=== PATIENT | male | born 1995 | race Caucasian/White ===

== ENCOUNTER 2017-05-05 11:03 | Emergency (ER) | payer SELFPAY ==
[2017-05-05] MEDS ORDERED: HYDROmorphone* 1 MG/ML 1 ML SYR ONE (11:08)
[2017-05-05] MEDS ORDERED: Ondansetron INJ* 2 MG/ML VIAL ONE (11:08)
[2017-05-05] MEDS ORDERED: Ondansetron INJ* 2 MG/ML VIAL IV ONE (11:08)
[2017-05-05] MEDS ORDERED: HYDROmorphone* 1 MG/ML 1 ML SYR IV SLOW PU ONE (11:08)
[2017-05-05 11:34] LABS: Hematocrit 46 % (42-52); Hemoglobin 16.3 g/dl (14.0-18.0); Mean Corpuscular HGB Conc 36 g/dl (31-36); Mean Corpuscular Hemoglobin 33 pg (27-31); Mean Corpuscular Volume 92 fL (80-94); Mean Platelet Volume 7 um3 (7.4-10.4); Red Blood Count 5.02 10^6/ul (4.0-5.4); Red Cell Distribution Width 13 % (10.5-15); White Blood Count 12.2 10^3/ul (3.5-10.8)
[2017-05-05 11:38] LABS: Comments Flag Yes
[2017-05-05] MEDS ORDERED: HYDROmorphone* 1 MG/ML 1 ML SYR IV ONE (11:39)
[2017-05-05] MEDS ORDERED: NS 0.9% 1000 ML* 1,000 ML IV ONE (11:39)
[2017-05-05 11:49] LABS: Albumin 4.5 g/dL (3.2-5.2); BUN/Creatinine Ratio 16.7 (8-20); Calcium 9.4 mg/dL (8.6-10.3); EGFR African American 112.1 (>60); EGFR Non-African American 87.2 (>60); Globulin 2.7 g/dL (2-4); Potassium 3.9 mmol/L (3.5-5.0); Total Bilirubin 0.9 mg/dL (0.2-1.0); Total Protein 7.2 g/dL (6.4-8.9)
[2017-05-05] MEDS ORDERED: Ketorolac INJ* 30 MG/ML 1 ML VIAL IV PUSH ONE (11:53)
[2017-05-05] MEDS ORDERED: fentaNYL* 50 MCG/ML 2 ML VIAL (100 MCG VIAL) ONE (12:08)
[2017-05-05] MEDS ORDERED: Naloxone* 0.4 MG/ML 1 ML VIAL ONE (12:08)
[2017-05-05] MEDS ORDERED: Midazolam* 1 MG/ML 10 ML VIAL (10 MG) ONE (12:08)
[2017-05-05] MEDS ORDERED: Flumazenil* 0.1 MG/ML 5 ML MDV ONE (12:08)
[2017-05-05] MEDS ORDERED: Iohexol 300* (CONTRAST) 10 ML SDV IV ONE (12:20)
--- NOTE | 2017-05-05 12:27 | RAD ---
HISTORY: Fall onto right shoulder COMPARISONS: None VIEWS: 1, single frontal view of the right shoulder FINDINGS: Limited single frontal projection of the right shoulder is submitted. There is inferior dislocation of the humerus with suspected the glenoid fossa IMPRESSION: LIMITED SINGLE FRONTAL PROJECTION OF THE RIGHT SHOULDER DEMONSTRATES INFERIOR DISLOCATION OF THE HUMERUS WITH RESPECT TO THE GLENOID FOSSA OF THE SCAPULA.
--- NOTE | 2017-05-05 13:07 | ED ---
Adult Trauma - HPI Summary HPI Summary: 22M presents with right shoulder pain s/p fall off ladder. He fell 15 ft onto his right shoulder. He has obvious deformity of right shoulder. He denies any head trauma or LOC. He denies any chest pain, SOB, neck pain, back pain, or abdominal pain. He has history of chronic back pain. He works in construction. He is right handed. He denies any previous dislocation. He denies any numbness or tingling. He ambulated into ED. - History of Current Complaint Chief Complaint: EDExtremityUpper Stated Complaint: SHOLDER INJURY Time Seen by Provider: 05/05/17 11:08 - Allergy/Home Medications Allergies/Adverse Reactions: Allergies Allergy/AdvReac Type Severity Reaction Status Date / Time No Known Allergies Allergy Verified 05/05/17 11:25 PMH/Surg Hx/FS Hx/Imm Hx Endocrine/Hematology History: Denies: Hx Anticoagulant Therapy Cardiovascular History: Denies: Hx Hypertension Infectious Disease History: No Infectious Disease History: Denies: Traveled Outside the [place] in Last 30 Days - Family History Known Family History: Positive: Cardiac Disease - Social History Alcohol Use: Occasionally Substance Use Type: Reports: None Smoking Status (MU): Never Smoked Tobacco Review of Systems Negative: Fever Negative: Chest Pain Negative: Shortness Of Breath Negative: Abdominal Pain Positive: Myalgia - right shoulder deformity All Other Systems Reviewed And Are Negative: Yes Physical Exam Triage Information Reviewed: Yes Vital Signs On Initial Exam: Initial Vitals Temp Pulse Resp BP Pulse Ox 97.8 F 69 20 132/72 98 05/05/17 11:04 05/05/17 11:04 05/05/17 11:04 05/05/17 11:04 05/05/17 11:04 Vital Signs Reviewed: Yes Appearance: Positive: Pain Distress Skin: Positive: Warm, Dry Head/Face: Positive: Normal Head/Face Inspection, Other - no step off, raccoon eyes, sigala sign Eyes: Positive: Normal, EOMI, CHIQUITA, Conjunctiva Clear ENT: Positive: Normal ENT inspection, Pharynx normal, TMs normal Respiratory/Lung Sounds: Positive: Clear to Auscultation, Breath Sounds Present Cardiovascular: Positive: Normal, RRR Abdomen Description: Positive: Nontender, Soft Bowel Sounds: Positive: Present Musculoskeletal: Positive: Strength/ROM Intact - lower extremitites, Other - deformity to right shoulder, good pulses, capillary refill< 2secs, abrasion to right hand, full ROM of hand, wrist. elbow nontender. Procedures - Joint Reduction Joint Reduction Site: shoulder (R) Conscious Sedation: Yes Reduction Attempts: 1 Pre-Procedure NV Exam: Yes Post Joint Reduction Film: joint reduced Diagnostics - Vital Signs Vital Signs Temp Pulse Resp BP Pulse Ox 05/05/17 12:00 73 134/74 98 05/05/17 11:42 18 05/05/17 11:30 54 121/58 99 05/05/17 11:28 59 122/57 96 05/05/17 11:16 63 95 05/05/17 11:15 122/53 05/05/17 11:13 18 05/05/17 11:04 97.8 F 69 20 132/72 98 - Laboratory Lab Results: Lab Results 05/05/17 05/05/17 Range/Units 11:20 11:20 WBC 12.2 H (3.5-10.8) 10^3/ul RBC 5.02 (4.0-5.4) 10^6/ul Hgb 16.3 (14.0-18.0) g/dl Hct 46 (42-52) % MCV 92 (80-94) fL MCH 33 H (27-31) pg MCHC 36 (31-36) g/dl RDW 13 (10.5-15) % Plt Count 178 (150-450) 10^3/ul MPV 7 L (7.4-10.4) um3 Neut % (Auto) 76.7 (38-83) % Lymph % (Auto) 14.8 L (25-47) % [place] % (Auto) 6.5 (1-9) % Eos % (Auto) 1.5 (0-6) % Baso % (Auto) 0.5 (0-2) % Absolute Neuts (auto) 9.4 H (1.5-7.7) 10^3/ul Absolute Lymphs (auto) 1.8 (1.0-4.8) 10^3/ul Absolute Monos (auto) 0.8 (0-0.8) 10^3/ul Absolute Eos (auto) 0.2 (0-0.6) 10^3/ul Absolute Basos (auto) 0.1 (0-0.2) 10^3/ul Absolute Nucleated RBC 0.01 10^3/ul Nucleated RBC % 0.1 Sodium 139 (133-145) mmol/L Potassium 3.9 (3.5-5.0) mmol/L Chloride 104 (101-111) mmol/L Carbon Dioxide 26 (22-32) mmol/L Anion Gap 9 (2-11) mmol/L BUN 18 (6-24) mg/dL Creatinine 1.08 (0.67-1.17) mg/dL Est GFR ( Amer) 112.1 (>60) Est GFR (Non-Af Amer) 87.2 (>60) BUN/Creatinine Ratio 16.7 (8-20) Glucose 146 H (70-100) mg/dL Calcium 9.4 (8.6-10.3) mg/dL Total Bilirubin 0.90 (0.2-1.0) mg/dL AST 21 (13-39) U/L ALT 22 (7-52) U/L Alkaline Phosphatase 57 (34-104) U/L Total Protein 7.2 (6.4-8.9) g/dL Albumin 4.5 (3.2-5.2) g/dL Globulin 2.7 (2-4) g/dL Albumin/Globulin Ratio 1.7 (1-3) Result Diagrams: 05/05/17 11:20 05/05/17 11:20 Lab Statement: Any lab studies that have been ordered have been reviewed, and results considered in the medical decision making process. - Radiology shoulder Xray Interpretation: Positive (See Comments) - IMPRESSION: LIMITED SINGLE FRONTAL PROJECTION OF THE RIGHT SHOULDER DEMONSTRATES INFERIOR DISLOCATION OF THE HUMERUS WITH RESPECT TO THE GLENOID FOSSA OF THE SCAPULA. Radiology Interpretation Completed By: Radiologist reduction shoulder Xray Interpretation: No Acute Changes - IMPRESSION: INTERVAL REDUCTION OF RIGHT SHOULDER DISLOCATION. NO ACUTE OSSEOUS INJURY. IF SYMPTOMS PERSIST, RECOMMEND REPEAT IMAGING. Radiology Interpretation Completed By: Radiologist - CT chest/ab CT Interpretation: Positive (See Comments) - IMPRESSION: 1. MINIMAL AIRSPACE DISEASE OF THE MEDIAL ASPECT OF THE LEFT LOWER LOBE. THIS MAY REPRESENT ATELECTASIS, THOUGH ASPIRATION OR SMALL PULMONARY PARENCHYMAL CONTUSION IS WITHIN THE DIFFERENTIAL IN THE CORRECT CLINICAL SETTING. 2. SPONDYLOLYSIS WITH SPONDYLOLISTHESIS AT L5-S1. 3. DEGENERATIVE DISC DISEASE WITH SEVERAL SCHMORL'S NODES, GREATER THAN EXPECTED FOR AGE, WHICH MAY INDICATE THE SEQUELA OF A JUVENILE OSTEOCHONDROMATOSIS INCLUDING SCHEUERMANN'S DISEASE CT Interpretation Completed By: Radiologist head, neck CT Interpretation: No Acute Changes CT Interpretation Completed By: Radiologist Adult Trauma Course/Dx - Course Course Of Treatment: 22M presents with right shoulder pain s/p fall off ladder. He fell 15 ft onto his right shoulder. He has obvious deformity of right shoulder. He denies any head trauma or LOC. He denies any other pain. He ambulated into ED. on exam no chest tender, abdominal pain, back or neck pain. right shoulder has obvious deformity and xray shows dislocation. with dr espinoza reduced shoulder and reduction xray shows reduced. CT neck, head normal. CT chest shows airspace nontender there so could be pulmonary contusion but vitals stable warned if develops chest pain or SOB to return. told to follow up with ortho and keep in sling. patient understands and agrees with plan - Diagnoses Differential Diagnosis/HQI/PQRI: Positive: Contusion(s), Fracture, Dislocation Provider Diagnoses: Dislocation of right shoulder joint Discharge - Discharge Plan Condition: Good Disposition: HOME Patient Education Materials: Shoulder Dislocation (ED) Forms: *Work Release Referrals: Non Staff,Doctor [Primary Care Provider] - Elder Islas MD [Medical Doctor] - Additional Instructions: Keep sling on area Follow up with ortho Take ibuprofen for pain every 6 hours Return to ED if develop any chest pain, shortness of breathm or any new or worsening symptoms
--- NOTE | 2017-05-05 13:32 | RAD ---
HISTORY: Post reduction, shoulder dislocation COMPARISONS: May 05, 2017 VIEWS: 3, Frontal internal rotation, external rotation, and outlet views of the right shoulder FINDINGS: BONE DENSITY: Normal. BONES: There is no displaced fracture. JOINTS: There is no arthropathy. ALIGNMENT: There is no dislocation. SOFT TISSUES: Unremarkable. OTHER FINDINGS: None. IMPRESSION: INTERVAL REDUCTION OF RIGHT SHOULDER DISLOCATION. NO ACUTE OSSEOUS INJURY. IF SYMPTOMS PERSIST, RECOMMEND REPEAT IMAGING.
--- NOTE | 2017-05-05 14:14 | RAD ---
HISTORY: Fall, C-spine trauma COMPARISONS: None TECHNIQUE: Multiple contiguous axial CT scans were obtained of the cervical spine without intravenous contrast, with coronal and sagittal multiplanar reformations. FINDINGS: BRAIN: The visualized brain is unremarkable CENTRAL CANAL: Evaluation of the central canal is limited on CT technique, however there is no obvious canalicular mass or epidural hemorrhage. ALIGNMENT: There is straightening of the normal cervical lordosis. VERTEBRAL BODIES: The odontoid process is intact. The atlantoaxial intervals are symmetric. The vertebral bodies are normal in attenuation, without fracture. JOINTS: There is no subluxation or dislocation MUSCULATURE: Unremarkable INTERVERTEBRAL DISCS: The intervertebral disc spaces are relatively preserved in height. AXIAL IMAGES: On axial images, there is no osseous neural foraminal narrowing or central canal stenosis. SOFT TISSUES: The visualized soft tissues of the neck are unremarkable. The prevertebral fat stripe is preserved. OTHER: None. IMPRESSION: NO ACUTE OSSEOUS INJURY TO THE CERVICAL SPINE
--- NOTE | 2017-05-05 14:17 | RAD ---
INDICATION: Intracranial injury COMPARISON: None TECHNIQUE: Noncontrast axial source images were acquired from the skull base to the vertex. There is metallic artifact from a pulse oximeter on the forehead. FINDINGS: Ventricles/sulci: The ventricles and cisterns are normal in size and configuration for age. Brain parenchyma: There is no focal parenchymal finding, evidence of intracranial mass, or intracranial mass effect. Intracranial hemorrhage:None. Extra-axial spaces: There are no abnormal extra axial fluid collections or evidence of extra-axial mass. Calvarium: There is no calvarial fracture or other calvarial abnormality. Scalp: There is no evidence of scalp or extracalvarial soft tissue abnormality. Paranasal sinuses/mastoid: The paranasal sinuses and mastoid air cells are clear. Other: None. IMPRESSION: NEGATIVE EXAMINATION
--- NOTE | 2017-05-05 14:34 | RAD ---
HISTORY: Trauma, shoulder injury. No other history is provided COMPARISONS: None TECHNIQUE: Multiple contiguous axial CT scans were obtained of the chest, abdomen, and pelvis after the administration of intravenous contrast. Coronal and sagittal multiplanar reformations are submitted for review.. Oral contrast was not administered. Delayed images were obtained through the abdomen and pelvis. FINDINGS: CHEST NECK AND THYROID: The lower neck and thyroid are unremarkable. CHEST WALL: There is no lower cervical, axillary, or supraclavicular lymphadenopathy by size criteria. HEART AND PERICARDIUM: The heart is unremarkable. AORTA AND PULMONARY VASCULATURE: The aorta and pulmonary vasculature are normal. MEDIASTINUM: There is no mediastinal lymphadenopathy by size criteria. SHERICE: There is no hilar lymphadenopathy by size criteria. AIRWAY AND ESOPHAGUS: The airway is unremarkable, without endobronchial filling defect. The esophagus is grossly normal. LUNG PARENCHYMA: There is minimal ground less opacification of the medial aspect of the left lower lobe PLEURA: No pleural abnormalities are noted. BONES AND SOFT TISSUES: Several Schmorl's nodes are noted. There is mild diffuse narrowing of the intervertebral disc spaces ABDOMEN/PELVIS: LIVER: The liver is normal in shape, size, contour, and attenuation. BILE DUCTS: There is no intrahepatic or extrahepatic biliary dilatation. GALLBLADDER: The gallbladder is normal, without pericholecystic inflammatory change. PANCREAS: The pancreas is normal, without mass or ductal dilatation. SPLEEN: Normal in size and appearance. UPPER GI TRACT: Evaluation of the gastrointestinal tract is limited by incomplete gastric distention. The upper GI tract is unremarkable. SMALL BOWEL \T\ MESENTERY: The small bowel is normal in contour, course, and caliber. There is no obstruction or dilatation. COLON: The colon is normal in contour, course, caliber. There is no pericolonic inflammatory change. ADRENALS: Normal bilaterally. KIDNEYS: The kidneys are normal in shape, size, contour, and axis. There is no hydronephrosis or nephrolithiasis. BLADDER: The bladder is smooth in contour. PELVIC ORGANS: The prostate gland is normal. The seminal vesicles are symmetric. AORTA: The aorta is normal. IVC: Unremarkable LYMPH NODES: There is no lymphadenopathy by size criteria. ABDOMINAL WALL: There is no evidence for abdominal wall hernia. BONES: Several Schmorl's nodes are noted. There are bilateral pars defects at L5 with grade 1 anterolisthesis of L5 on S1. There is a probable mild fusion/segmentation anomaly of L5 on the left. There is mild diffuse narrowing of the intervertebral disc spaces. OTHER: There is no active arterial extravasation IMPRESSION: 1. MINIMAL AIRSPACE DISEASE OF THE MEDIAL ASPECT OF THE LEFT LOWER LOBE. THIS MAY REPRESENT ATELECTASIS, THOUGH ASPIRATION OR SMALL PULMONARY PARENCHYMAL CONTUSION IS WITHIN THE DIFFERENTIAL IN THE CORRECT CLINICAL SETTING. 2. SPONDYLOLYSIS WITH SPONDYLOLISTHESIS AT L5-S1. 3. DEGENERATIVE DISC DISEASE WITH SEVERAL SCHMORL'S NODES, GREATER THAN EXPECTED FOR AGE, WHICH MAY INDICATE THE SEQUELA OF A JUVENILE OSTEOCHONDROMATOSIS INCLUDING SCHEUERMANN'S DISEASE
[2017-05-05 15:12] VITALS: BP 125/49
== END 2017-05-05 15:12 | disposition home or self-care (01) ==
LOC: EDBD → ED 11:03
DX: S43.004A Unspecified dislocation of right shoulder joint, initial encounter (principal); M25.511 Pain in right shoulder; W11.XXXA Fall on and from ladder, initial encounter; Y93.89 Activity, other specified; Y92.9 Unspecified place or not applicable
CPT/HCPCS: 23650; 36415; 70450; 71260; 72125; 74177; 80053; 85025; 96374; 96375; 99285; J1170; J1885; J2250; J2310; J2405; J3010; Q9967